=== PATIENT | female | born 1980 | race Caucasian/White ===

== ENCOUNTER 2020-02-19 10:37 | Emergency (ER) | payer OTHER ==
--- NOTE | 2020-02-19 12:01 | ED Physician Documentation ---
PD HPI BACK PAIN - Stated complaint Stated Complaint: BACK PX - Chief complaint Chief Complaint: Back Pain - History obtained from History obtained from: Patient - History of Present Illness Timing - onset: Yesterday Timing - duration: Days (1) Timing - details: Abrupt onset (He just bent over to place something that was not heavy and as she stood back up and turned to the right she felt onset of pain in the right upper lumbar to flank area radiating around to the inguinal area. She denies pain down the leg per se. She denies any weakness or numbness in the lower extremities. She is not had any bowel or bladder dysfunction. She denies any hematuria. She has had back pains in the past but not usually as abrupt or severe as this.), Still present Location: Lower (thoracolumbar area), Right Quality: Pain, Spasm, Aching Associated symptoms: No: Fever, Weakness, Numbness, Incontinent of urine Improves with: No: Rest Worsened by: Movement, Twisting Contributing factors: Lifting, Twisting. No: Trauma Similar symptoms before: Diagnosis (disc problems in back and episodic back pain.) Recently seen: Not recently seen Review of Systems Constitutional: denies: Fever, Chills Nose: denies: Rhinorrhea / runny nose, Congestion Throat: denies: Sore throat Cardiac: denies: Chest pain / pressure Respiratory: denies: Cough GI: reports: Abdominal Pain (right lower abd/inguinal area). denies: Nausea, Vomiting, Diarrhea : denies: Dysuria, Frequency, Hematuria, Discharge Skin: denies: Rash, Lesions Musculoskeletal: reports: Back pain Neurologic: denies: Focal weakness, Numbness, Near syncope PD PAST MEDICAL HISTORY - Past Medical History Cardiovascular: None Respiratory: None GI: None - Past Surgical History General: Cholecystectomy, Appendectomy - Present Medications Home Medications: Ambulatory Orders Medication Instructions Recorded Confirmed Naproxen 500 mg PO BID #20 tablet 02/19/20 Oxycodone HCl/Acetaminophen 1 each PO QID PRN #12 tablet 02/19/20 [Percocet 7.5-325 mg Tablet] Tizanidine HCl 4 mg PO TID PRN #25 capsule 02/19/20 dexAMETHasone [Decadron] 4 mg PO DAILY #5 tablet 02/19/20 - Allergies Allergies/Adverse Reactions: Allergies Allergy/AdvReac Type Severity Reaction Status Date / Time No Known Drug Allergies Allergy Verified 02/19/20 10:56 PD ED PE NORMAL - Vitals Vital signs reviewed: Yes - General General: Alert and oriented X 3, Well developed/nourished, Other (Appears uncomfortable with guarded motion of the lower back. Even rested she still seems uncomfortable and in pain.) - HEENT HEENT: Pharynx benign - Neck Neck: Supple, no meningeal sign, No adenopathy - Cardiac Cardiac: RRR, No murmur - Respiratory Respiratory: Clear bilaterally - Abdomen Abdomen: Normal bowel sounds, Soft, Non tender, Non distended - Female Female : Deferred - Rectal Rectal: Deferred - Back Back: No CVA TTP, No spinal TTP (She is tender however to the right paralumbar muscles in the upper lumbar area. There is some mild percussion tenderness in the flank area as well. No rash or sores. No midline tenderness.) - Derm Derm: Normal color, Warm and dry, No rash - Neuro Neuro: Alert and oriented X 3, No motor deficit, No sensory deficit, Normal speech, Other (Normal reflexes at both kneecaps.) Eye Opening: Spontaneous Motor: Obeys Commands Verbal: Oriented GCS Score: 15 Results - Vitals Vitals: Vital Signs - 24 hr 02/19/20 02/19/20 10:51 13:24 Temperature 36.5 C Heart Rate 100 72 Respiratory 16 16 Rate Blood Pressure 100/56 L 110/68 O2 Saturation 98 98 Oxygen O2 Source Room air PD MEDICAL DECISION MAKING - ED course Complexity details: re-evaluated patient (improved with IM meds. Moderate pain now.), considered differential (No red flags to suggest need for testing or imaging. Sounds musculoskeletal does not sound sciatic.), d/w patient Departure - Departure Disposition: 01 Home, Self Care Clinical Impression: Acute low back pain Qualifiers: Back pain laterality: bilateral Sciatica presence: without sciatica Qualified Code(s): M54.5 - Low back pain Condition: Stable Record reviewed to determine appropriate education?: Yes Instructions: ED Spasm Back No Trauma Prescriptions: dexAMETHasone [Decadron] 4 mg PO DAILY #5 tablet Naproxen 500 mg PO BID #20 tablet Oxycodone HCl/Acetaminophen [Percocet 7.5-325 mg Tablet] 1 each PO QID PRN #12 tablet PRN Reason: Pain Tizanidine HCl 4 mg PO TID PRN #25 capsule PRN Reason: Spasms Comments: Ice and gentle range of motion for the low back. See how much improvement you have with that through the day. You can continue with anti-inflammatories such as naproxen twice daily and steroid anti-inflammatory Decadron daily for 5 days. Add tizanidine muscle relaxant if needed for spasms and stiffness. Add Tylenol or oxycodone if needed for pains. Recheck if not improved well over the next several days. Discharge Date/Time: 02/19/20 13:24
[2020-02-19] MEDS ORDERED: KETOROLAC 60 MG/2 ML VIAL IM STA (12:33)
[2020-02-19] MEDS ORDERED: ACETAMINOPHEN 500 MG TABLET PO STA (12:33)
[2020-02-19] MEDS ORDERED: DEXAMETHASONE 10 MG/ML VIAL PO STA (12:33)
[2020-02-19] MEDS ORDERED: CHERRY SYRUP 10 ML UDC PO ONE (12:33)
[2020-02-19 13:25] VITALS: BP 110/68
== END 2020-02-19 13:24 | disposition home or self-care (01) ==
LOC: ED 10:37
DX: M54.5 Low back pain (principal)
CPT/HCPCS: 96372; 99283; 99284; A9270

== ENCOUNTER 2022-09-04 13:35 | Emergency (ER) | payer OTHER ==
[2022-09-04 14:25] LABS: BASOPHILS % (AUTO) 0.4 %; EOSINOPHILS % (AUTO) 0.2 %; HCT - HEMATOCRIT 45.3 % (37.0-47.0); HGB - HEMOGLOBIN 14.8 g/dL (12.0-16.0); LYMPHOCYTES # (AUTO) 3.1 10^3/uL (1.5-3.5); LYMPHOCYTES % (AUTO) 31.4 %; MEAN CORPUSCULAR HEMOGLOBIN 27.7 pg (27.0-31.0); MEAN CORPUSCULAR HGB CONC 32.7 g/dL (32.0-36.0); MEAN CORPUSCULAR VOLUME 84.8 fL (81.0-99.0); MEAN PLATELET VOLUME 10.1 fL (7.9-10.8); MONOCYTES # (AUTO) 0.6 10^3/uL (0.0-1.0); MONOCYTES % (AUTO) 6.1 %; NEUTROPHILS # (AUTO) 6.1 10^3/uL (1.5-6.6); NEUTROPHILS % (AUTO) 61.8 %; PLT - PLATELET COUNT 304 10^3/uL (130-450); RED BLOOD COUNT 5.34 10^6/uL (4.20-5.40); RED CELL DISTRIBUTION WIDTH 13.1 % (12.0-15.0); WHITE BLOOD COUNT 9.8 x10^3/uL (4.8-10.8)
[2022-09-04 14:41] LABS: ALBUMIN 4.1 g/dL (3.2-5.5); ALBUMIN/GLOBULIN RATIO 1.3 (1.0-2.2); BILIRUBIN,TOTAL 1.1 mg/dL (0.2-1.0); CALCIUM 9.7 mg/dL (8.5-10.3); CREATININE 0.7 mg/dL (0.4-1.0); POTASSIUM 4.1 mmol/L (3.5-5.0); TOTAL PROTEIN 7.3 g/dL (6.7-8.2)
--- NOTE | 2022-09-04 14:44 | XRAY Report ---
PROCEDURE: Chest 1 View X-Ray INDICATIONS: Chest pain TECHNIQUE: One view of the chest was acquired. COMPARISON: None. FINDINGS: Surgical changes and devices: None. Lungs and pleura: No pleural effusions or pneumothorax. Lungs are clear. Mediastinum: Mediastinal contours appear normal. Heart size is normal. Bones and chest wall: No suspicious bony lesions. Overlying soft tissues appear unremarkable. IMPRESSION: No acute cardiopulmonary process demonstrated radiographically. Reviewed by: Gee Gee MD on 09/04/2022 2:43 PM PDT Approved by: Gee Gee MD on 09/04/2022 2:43 PM PDT Station ID: [id number]
[2022-09-04] MEDS ORDERED: HYOSCYAMINE SL 0.125 MG TABLET SL STA (16:06)
--- NOTE | 2022-09-04 16:09 | ED Physician Documentation ---
PD HPI ABD PAIN - Stated complaint Stated Complaint: UPPER ABD PX/BACK PX - Chief complaint Chief Complaint: Cardiac - History obtained from History obtained from: Patient - Additional information Additional information: 42-year-old woman presents for evaluation of abdominal pain. This is kind of a chronic issue and she had a lot of issues with it a few years ago. At that time she recollects that she had a normal upper endoscopy. GI cocktail was unhelpful. Normal abdominal ultrasound. She has been treated ever since with a PPI. Is been especially bad for the last 5 weeks, progressive now constant pain for the last week or so. Upper abdominal pain radiating to the back. She is feeling very anxious with it. She notes that her bowel movements have been foamy. This is associate with a lot of anxiety and a couple of nights ago she felt like somebody was holding a gun to her even though no such thing was happening. Review of Systems Ten Systems: 10 systems reviewed and negative Constitutional: denies: Fever, Chills Cardiac: reports: Chest pain / pressure. denies: Palpitations Respiratory: denies: Dyspnea, Cough PD PAST MEDICAL HISTORY - Past Medical History Past Medical History: Yes Cardiovascular: None Respiratory: None GI: None - Past Surgical History General: Cholecystectomy, Appendectomy - Present Medications Home Medications: Ambulatory Orders Medication Instructions Recorded Confirmed Naproxen 500 mg PO BID #20 tablet 02/19/20 Oxycodone HCl/Acetaminophen 1 each PO QID PRN #12 tablet 02/19/20 [Percocet 7.5-325 mg Tablet] Tizanidine HCl 4 mg PO TID PRN #25 capsule 02/19/20 dexAMETHasone [Decadron] 4 mg PO DAILY #5 tablet 02/19/20 Hyoscyamine [Levsin] 0.125 mg SL AC #120 tablet 09/04/22 Omeprazole 40 mg PO BID #60 cap 09/04/22 Sucralfate [Carafate] 1 gm PO ACHS #60 tablet 09/04/22 - Allergies Allergies/Adverse Reactions: Allergies Allergy/AdvReac Type Severity Reaction Status Date / Time No Known Drug Allergies Allergy Verified 09/04/22 14:06 - Social History Does the pt smoke?: No Smoking Status: Never smoker PD ED PE NORMAL - Vitals Vital signs reviewed: Yes - General General: Alert and oriented X 3, No acute distress - HEENT HEENT: PERRL, EOMI - Neck Neck: Supple, no meningeal sign, No bony TTP - Cardiac Cardiac: RRR, No murmur - Respiratory Respiratory: No respiratory distress, Clear bilaterally - Abdomen Abdomen: Normal bowel sounds, Soft, Non tender - Back Back: No CVA TTP, No spinal TTP - Derm Derm: Normal color, Warm and dry - Extremities Extremities: No edema, No calf tenderness / cord - Neuro Neuro: Alert and oriented X 3, Normal speech Results - Vitals Vitals: Vital Signs - 24 hr 09/04/22 09/04/22 09/04/22 14:01 16:05 17:48 Temperature 36.4 C L Heart Rate 115 H 72 76 Respiratory 16 19 16 Rate Blood Pressure 129/83 H 126/80 127/60 O2 Saturation 98 99 99 Oxygen O2 Source Room air - EKG (time done) 1409 Rate: Rate (enter#) (80) Rhythm: NSR [place]: Normal Intervals: Normal MA QRS: Normal Ischemia: Normal ST segments - Labs Labs: Laboratory Tests 09/04/22 09/04/22 09/04/22 14:19 14:19 14:19 WBC 9.8 RBC 5.34 Hgb 14.8 Hct 45.3 MCV 84.8 MCH 27.7 MCHC 32.7 RDW 13.1 Plt Count 304 MPV 10.1 Neut # (Auto) 6.1 Lymph # (Auto) 3.1 Emery # (Auto) 0.6 Eos # (Auto) 0.0 Baso # (Auto) 0.0 Absolute Nucleated RBC 0.00 Nucleated RBC % 0.0 Sodium 138 Potassium 4.1 Chloride 106 Carbon Dioxide 24 Anion Gap 8.0 BUN 8 Creatinine 0.7 Estimated GFR (MDRD) 91 Glucose 102 H Calcium 9.7 Total Bilirubin 1.1 H AST 18 ALT 16 Alkaline Phosphatase 53 Troponin I High Sens < 2.3 L Total Protein 7.3 Albumin 4.1 Globulin 3.2 Albumin/Globulin Ratio 1.3 Lipase 37 PD MEDICAL DECISION MAKING - ED course ED course: 42yo female with upper abd pain assoc with a lot of anxiety. Benign exam. Labs WNL. DDx includes hital hernia, gastritis/ulcer, IBS, small bowel overgrowth. CT showing gastritis/duodenitis. Feeling much better giovany byers here. Departure - Departure Disposition: Home, Self Care Clinical Impression: Abdominal pain Condition: Good Record reviewed to determine appropriate education?: Yes Instructions: ED Abdominal Pain Female Non-Specific Abdominal Pain Prescriptions: Sucralfate [Carafate] 1 gm PO ACHS #60 tablet Hyoscyamine [Levsin] 0.125 mg SL AC #120 tablet Omeprazole 40 mg PO BID #60 cap Comments: You are seen today for abdominal pain. The CT showed inflammation of the distal part of the stomach and duodenum, I want you to increase your PPI dose to twice a day and I am writing a prescription for that. Also we will add the Levsin which was helpful for you here and sucralfate. Sucralfate needs to be taken about half an hour before meals and then also half an hour separate from other medications. Reasonable to follow-up with your primary care physician for consideration for for referral for GI for repeat upper endoscopy since been a few years. Return for new or worsening symptoms. Discharge Date/Time: 09/04/22 17:50
[2022-09-04] MEDS ORDERED: iohexoL-300 100 ML VIAL ONE (16:32)
[2022-09-04] MEDS ORDERED: iohexoL-300 100 ML VIAL IVP ONE (17:18)
--- NOTE | 2022-09-04 17:38 | CT Report ---
PROCEDURE: Abdomen/Pelvis W INDICATIONS: IV only, abd pain CONTRAST: IV CONTRAST: Isovue 300 ml: 100 PO CONTRAST: *NO PO CONTRAST TECHNIQUE: After the administration of contrast, 5 mm thick sections acquired from the diaphragms to the sym physis. 5 mm thick coronal and sagittal reformats were acquired. For radiation dose reduction, the following was used: automated exposure control, adjustment of mA and/or kV according to patient size . COMPARISON: None. FINDINGS: Image quality: Excellent. ABDOMEN: Lung bases: Bibasilar atelectasis. Breast implants are noted. Heart size is normal. No hiatal hernia. Solid organs: Liver and spleen are normal in size and enhancement. Gallbladder is unremarkable. Bi liary system is non dilated. Pancreas enhances normally. No adrenal nodules. Kidneys demonstrate n ormal size and enhancement, without hydronephrosis. Peritoneum and bowel: There is circumferential wall thickening involving the distal gastric antrum, p ylorus and proximal duodenum with mild adjacent stranding. Remainder of the stomach appears unremarka ble. Visualized small bowel and colon appear unremarkable. The appendix is not definitively visualize d but no secondary findings for acute inflammation noted in the right lower quadrant. No free fluid o r air. Nodes and vessels: No retroperitoneal or mesenteric adenopathy by size criteria. Aorta and inferior vena cava are normal in size. Miscellaneous: Fat-containing umbilical hernia without acute inflammation. PELVIS: Genitourinary: Bladder wall thickness is normal. Miscellaneous: No inguinal hernias or adenopathy. Bones: No suspicious bony lesions. No acute vertebral body compression fractures. Lower lumbar spon dylosis. IMPRESSION: Findings compatible with distal gastritis/duodenitis. No evidence for perforation or organized fluid collection. Other chronic findings as above. Reviewed by: Jered Solis MD on 09/04/2022 5:37 PM PDT Approved by: Jered Solis MD on 09/04/2022 5:37 PM PDT Station ID: [id number]
[2022-09-04 17:49] VITALS: BP 127/60
== END 2022-09-04 17:50 | disposition home or self-care (01) ==
LOC: ED 13:35
DX: K29.70 Gastritis, unspecified, without bleeding (principal); K29.80 Duodenitis without bleeding; Z90.49 Acquired absence of other specified parts of digestive tract; F41.9 Anxiety disorder, unspecified
CPT/HCPCS: 36415; 71045; 74177; 80053; 83690; 84484; 85025; 93005; 99284; A9270; Q9967

== ENCOUNTER 2023-03-05 10:59 | Outpatient (CLI) | payer OTHER ==
--- NOTE | 2023-03-13 10:03 | Mammography Report ---
BILATERAL DIGITAL SCREENING MAMMOGRAM 3D/2D WITH AUGMENTATION: 03/05/2023 CLINICAL: Routine screening. Family history of breast cancer. No prior exams were available for comparison. Both breasts are heterogeneously dense, which may obscure small masses (category c / 51-75% glandular tissue). Bilateral breast implants are intact. No significant masses, calcifications, or other findings are seen in either breast. IMPRESSION: NEGATIVE There is no mammographic evidence of malignancy. A 1 year screening mammogram is recommended. Based on the Tyrer Cuzick model (a risk assessment model) the patients lifetime risk is 10.6% and he r 10 year risk is 1.8%. According to the ACR, ACS, and NCCN guidelines, an annual breast MRI exam bibi ng with mammogram is recommended if the patients lifetime risk is 20% or greater. This exam was interpreted at Station ID: [id number]. NOTE: For mammograms, a report in lay terms will be sent to the patient. Approximately 15% of breast malignancies will not be visualized mammographically. In the management of a palpable breast mass, a negative mammogram must not discourage biopsy of a clinically suspicious lesion. Electronically Signed By: Talib del castillo/radha:03/12/2023 10:01:56 letter sent: No_Letter ACR BI-RADS Category 1: Negative 3341F PARENCHYMAL PATTERN: (D) - The breast(s) demonstrate(s) heterogeneously dense fibroglandular breana alvarado. BI-RADS CATEGORY: (1) - 1 Mammogram [id number] 1 year screening LATERALITY: (B)
== END 2023-03-05 11:00 | disposition home or self-care (01) ==
LOC: DI.S 10:59
PROVIDERS: ATTEND Nurse Practitioner Family
DX: Z12.31 Encounter for screening mammogram for malignant neoplasm of breast (principal); Z80.3 Family history of malignant neoplasm of breast

== ENCOUNTER 2023-06-24 07:37 | Outpatient (CLI) | payer OTHER ==
--- NOTE | 2023-06-24 09:16 | MRI Report ---
PROCEDURE: LUMBAR SPINE WO INDICATIONS: LUMBAGO SCIATICA TECHNIQUE: Noncontrast sagittal T1 spin echo and T2 fast echo, sagittal STIR, axial T1 and T2 fast spin echo thr ough the lumbar spine. In cases with scoliosis, additional coronal T2 fast spin echo may be performe d. COMPARISON: Lumbar spine plain films dated 06/24/2023. FINDINGS: Image quality: Excellent. Alignment and Curvature: There is normal bony alignment. Bone Marrow: Marrow is of normal overall signal. No acute vertebral body compression fractures. Spinal Cord: Conus medullaris terminates at the L1-L2 level. Visualized cord demonstrates normal si gnal and size. Paraspinous Soft Tissues: No paravertebral masses. T12-L1: Minimal disc bulge. No canal stenosis or foraminal stenosis. L1-L2: Minimal disc bulge. No canal stenosis or foraminal stenosis. L2-L3: Mild facet hypertrophy. No canal stenosis or foraminal stenosis. L3-L4: Mild facet hypertrophy. No canal stenosis or foraminal stenosis. L4-L5: Posterior annulus tear. Disc bulge. Facet hypertrophy. Borderline canal stenosis. No signifi cant foraminal stenosis. L5-S1: Disc desiccation. Mild disc height loss. Diffuse disc bulge with mild superimposed left para central disc protrusion. There is minimal posterior displacement of the left S1 nerve root in the lef t lateral recess. There is no significant foraminal narrowing. Mild facet hypertrophy. IMPRESSION: 1. At L5-S1, there is a mild left paracentral disc protrusion with slight posterior displacement of t he left S1 nerve root in the left lateral recess. Question: Does this patient have left sciatica? 2. At L4-L5, there is posterior annulus tear plus disc bulge. There is borderline canal stenosis. 3. Mild multilevel facet arthropathy. Reviewed by: Stevie Sinclair MD on 06/24/2023 9:15 AM PDT Approved by: Stevie Sinclair MD on 06/24/2023 9:15 AM PDT Station ID: [id number]
--- NOTE | 2023-06-24 14:23 | XRAY Report ---
PROCEDURE: Lumbar Spine Complete INDICATIONS: LUMBAGO SCIATICA TECHNIQUE: 4 views of the lumbar spine were acquired. COMPARISON: MRI lumbar spine 06/24/2023 FINDINGS: Bones: 5 [id number] vertebrae are present. There is trace retrolisthesis of L3 on L4. Moderate disc space narrowing is present L5-S1, mild L4-5. Minimal foraminal narrowing is present L5-S1. No v ertebral body compression fractures. No suspicious bony lesions. Soft tissues: Overlying bowel gas pattern is normal. No suspicious soft tissue calcifications. IMPRESSION: Degenerative changes most notable at L5-S1. Reviewed by: Janelle Hsieh MD on 06/24/2023 2:22 PM PDT Approved by: Janelle Hsieh MD on 06/24/2023 2:22 PM PDT Station ID: [id number]
== END 2023-06-24 07:38 | disposition home or self-care (01) ==
LOC: DI 07:37
PROVIDERS: ATTEND Nurse Practitioner Family
DX: M51.17 Intervertebral disc disorders with radiculopathy, lumbosacral region (principal); M47.27 Other spondylosis with radiculopathy, lumbosacral region